=== PATIENT | male | born 1955 | race Caucasian/White ===

== ENCOUNTER 2023-08-09 15:00 | Inpatient (IN) | payer OTHER, SELFPAY ==
[2023-08-09] VITALS (19 sets, daily range): BP systolic 95–164; BP diastolic 56–91; BMI 31.2
--- NOTE | 2023-08-09 10:56 | ED.GENMED ---
History of Present Illness
General
Chief Complaint: Chest Pain
Source: patient
Exam Limitations: none
Time Seen by Provider: 08/09/23 10:47
Nursing documentation reviewed up to this point in time: agreed with
Travel History
Have you had any contact with someone who has COVID-19?: No
Do you have any symptoms of coronavirus? Fever > 100 degrees, chills, cough, shortness of breath, sore throat, loss of taste or smell, muscle aches, or headache?: No
History of Present Illness
History of Present Illness:
67-year-old male with a past medical history of atrial fibrillation, CVA, hyperlipidemia, hypertension who presents to the emergency department with his for evaluation of chest pain. Patient reports acute onset left-sided chest pressure that
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 He says that symptoms have been constant since then. He says some associated clamminess and dizziness.
He says he feels mildly short of breath. He says he has had significant belching associated with it. He denies any abdominal pain. He said he did feel some transient nausea but no vomiting and nausea has resolved by the time of my assessment. He
says he was in his normal state of health prior to onset of symptoms. He says he has never had similar symptoms in the past and has never had exertional symptoms. He does see a schedule clerk (Dr. Lockwood) for atrial fibrillation and takes Eliquis
but denies any other known cardiac history.
Past History
Past History
ED Past Medical History: Other (? TIA)
ED Past Surgical History: Orthopedic
Social History
Tobacco: Non-smoker
Alcohol: None
Drug: None
Personal:
Living: with family
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
Review of Systems
Review of Systems
All Other Systems: ROS reviewed and negative except as documented in HPI and ROS
Constitutional: Denies fever or chills
Respiratory: Reports trouble breathing; Denies cough
Cardiac: Reports chest pain and diaphoresis; Denies palpitations
ABD/GI: Reports nausea; Denies abdominal pain, vomiting or diarrhea
: Denies flank pain
Musculoskeletal: Denies neck pain or back pain
Neurological: Reports dizzy; Denies headache, weakness or numbness
Phy Exam
Physical Exam
Physical Exam:
General: Awake, alert, oriented x3; laying in bed appears clammy and somewhat uncomfortable
Head: Normocephalic, atraumatic
Eyes: Conjunctiva normal, sclera anicteric
Throat: Airway intact, handling secretions
Neck: Trachea midline, supple without meningismus
Lungs: Clear to auscultation bilaterally, no wheezing, rales, rhonchi
Heart: Regular rate and rhythm, no murmurs, gallops, or rubs
Abd: Soft, non distended, minimal epigastric tenderness
Neuro: Cranial nerves grossly intact, speech fluid
Skin: no rash
Extremities: No edema in extremities, equal pulses in all extremities
Scores
Heart Failure Risk
Heart Failure Risk Score: Not Applicable
Heart Score for Chest Pain Patients
STEMI patient?: No
History: Moderately Suspicious
ECG: Normal
Age: >/= 65 years
Risk Factors: >/= 3 Risk Factors or History of CAD
Troponin: </= Normal Limit
Heart Score for Chest Pain Patients: 5
Heart Score Risk: 20.3% MACE over next 6 weeks
Withdrawal Assessment of Alcohol
Withdrawal Assessment Completed?: Not applicable
Course
Orders/Labs/Results
Orders:
Orders
08/09/23
Electrocardiogram (*1) Stat
Comment: DONE EMR
08/09/23 10:31
Electrocardiogram (*1) Urgent
Reason for Study: Chest Pain
EKG- Treatment ONCE
08/09/23 10:51
Nitroglycerin Sublingual [Nitrostat (Sublingual)] 0.4 mg .ROUTE .STK-MED ONE
08/09/23 10:52
Aspirin Chewable [Low Strength Aspirin] 324 mg .ROUTE .STK-MED ONE
08/09/23 10:53
Complete Blood Count/With Diff Urgent
Comprehensive Metabolic Panel Urgent
Lipase Urgent
PT/INR [Prothrombin Time] Urgent
PTT Urgent
Comment: COMBINE
Troponin I Urgent
08/09/23 10:54
CR Chest - 2 Views Urgent
Reason For Exam: cp
08/09/23 11:33
CT Chest Angio W/wo Iv Contras Urgent
Comment:
Reason For Exam: acute onset severe chest pain
Pharmacy Request to Place See Dose Instructions PO NOW STA
Discontinue all Active Warfarin orders?: Yes
08/09/23 11:[address] Non Medication Order As Directed
Physician Order: PTT 6 hours after initial start of Heparin infusion
08/09/23 11:37
Nitroglycerin 100 mg/250 ml [Nitroglycerin Premix] 100 mg in 250 ml IV NOW
Currently infusing. Continue current dose and titrate:: Yes
Titrate to keep:: Chest Pain Free
Titrate by mcg/min:: 5 mcg/min, may increase by 10 mcg/min if dose > 20 mcg/min
Frequency of titrations (minutes):: every 3-5 minutes
Maximum dose in mcg/min:: 200
Begin to taper infusion when:: Remained at goal for 2hrs
Taper by mcg/min:: 5 mcg/min
Frequency of taper (minutes) if patient maintains goal:: 30
Taper to off?: Yes
If infusion off & no longer maintaining goal:: Contact Provider
Pulse Ox/cont/shift [RESP] Stat
Quantity: 1
08/09/23 11:38
CARDIOLOGY CONSULT Urgent
Consulting Provider: Jacqui Briscoe
Was physician already notified: Yes
Cardiac Monitoring- Treatment ONCE
08/09/23 11:45
Heparin 44670 Units/250 ml 25,000 units in 250 ml IV PER PROTOCOL
Weight to be used for heparin protocol in kilograms (kg):: 98.7
Protocol:: Cardiac Tx/Acute Coronary
PTT Goal Range to be used:: PTT 73 to 111 seconds
Order type:: Initial
INITIAL Infusion Dose (UNITS/KG/hr) & then follow protocol:: 12 units/kg/hr
Infusion Dose in UNITS/hr & then follow protocol (UNITS/hr):: 1,000
INFUSION RATE in mL/hr & then follow protocol (mL/hr):: 10
PTT less than or equal to 64 seconds:: Increase rate by 200 units/hr (+ 2 mL/hr)
PTT 64.1 to 72.9 seconds:: Increase rate by 100 units/hr (+ 1 mL/hr)
PTT 73 to 111 seconds:: Target Range. No change in rate.
PTT 111.1 to 130.9 seconds:: Decrease rate by 100 units/hr (- 1 mL/hr)
PTT 131 to 199.9 seconds:: HOLD for 1 hr. Then decrease rate by 200 units/hr (- 2 mL/hr)
PTT greater than or equal to 200 seconds:: HOLD for 2 hrs & Notify Provider. Then decrease by 200 units/hr (-
2 mL/hr)
Lab follow-up:: Each change, PTT q6h until 2 consecutive are therapeutic. Then PTT
daily.
08/09/23 12:[address] See Dose Instructions IV DIRECTED
08/09/23 12:02
Add On- LAB Urgent
Tests Added?: PTT to coag
08/09/23 12:50
Echo 2D MMode Color/Doppler Routine
Reason for Study: Chest pain
08/09/23 14:00
Troponin I Urgent
Abnormal Lab Results
08/09/23
10:53
RBC 4.11 L 10^6/uL
(4.70-6.10)
MCV 96.6 H fL
(80.0-94.0)
MCH 34.5 H pg
(27.0-31.0)
MPV 10.9 H fL
(7.4-10.4)
Absolute Lymphs (auto) 0.8 L 10^3/uL
(1.2-3.4)
Neutrophils % 81.7 H %
(42.2-75.2)
Lymphocytes % 10.5 L %
(20.5-51.1)
APTT 36.8 H Sec
(23.4-35.0)
Glucose 138 H mg/dl
(70-99)
Calcium 10.4 H mg/dl
(8.4-10.2)
08/09/23 10:53
08/09/23 10:53
Vital Signs
Initial and Last Documented VS:
Initial Vital Signs
Pulse Resp BP Pulse Ox
66 16 164/91 98
08/09/23 10:36 08/09/23 10:36 08/09/23 10:36 08/09/23 10:36
Last Documented Vital Signs
Temp Pulse Resp BP Pulse Ox
36.7 C 66 24 134/83 98
08/09/23 11:03 08/09/23 11:03 08/09/23 11:03 08/09/23 11:03 08/09/23 11:03
MDM/Problems Addressed
Differential Diagnosis Includes:
Acute RI/ACS, gastritis/esophageal spasm, cholecystitis, acute aortic dissection somewhat less likely, pulmonary embolism a consideration
MDM/Problems Addressed:
67-year-old male with history as above presents for evaluation of acute onset chest pressure associate with shortness of breath, clamminess, dizziness and belching. Hypertensive but otherwise normal vitals. Physical exam as above. EKG shows sinus
rhythm no STEMI. Plan to place an IV check labs including CBC CMP, lipase, troponins. Check stat portable chest x-ray. Will treat with nitroglycerin and aspirin. Will monitor very closely, low threshold for CT chest given acuity of onset and
patient appearance. Reassess after the above.
Labs reviewed: CBC unremarkable, CMP no clinically significant abnormalities. Troponin negative x 1. Lipase normal. Chest x-ray shows no acute disease on my review. Will perform serial EKG. Will send for a CTA to rule out aortic dissection or
PE. I am concerned that this is anginal chest pain. After dose of nitroglycerin x 3 patient did have improvement in his chest pain�he says intensity went from 9/10 down to a 6/10 but it is starting to return. Will provide nitroglycerin infusion
and titrate to chest pain-free. I have placed a call to cardiology to evaluate the patient--discussed case, recommended starting on heparin without bolus given that he is on Eliquis, agreed with nitroglycerin infusion and aspirin and they will
evaluate at bedside.
CTA chest negative for dissection or PE. Cardiology at bedside assessing patient, awaiting recommendations�anticipate admission.
Cardiology evaluated patient, recommended holding on heparin unless repeat troponin rising. Not clearly cardiac chest pain from their perspective, treated with Toradol for possible muscular component. They will perform echocardiogram at bedside.
They recommended admission to hospital service they will consult and we will continue to trend troponins. Case discussed with hospitalist for admission.
Chronic conditions affecting care:
Hypertension, hyperlipidemia, obesity
Chronic conditions affecting care: HTN
Acute Exacerbation and/or Progression of Chronic Illness:
Acutely hypertensive
*Radiology
Radiology exam reviewed: preliminary read by ED provider and radiology read reviewed
*Pulse Oximetry
Patient hypoxic: no
*EKG
Interpreted by ED Provider?: Yes
Heart Rate: 60
Rate: normal
Rhythm: sinus
[place]: normal axis
Interval: normal interval
QRS Pattern: normal QRS
Ischemia: no ischemia
*Critical Care Note
Total Time (30-74mins, 75-104mins- exclusive of procedures): Not Applicable
Data Reviewed
Review of Other/Old Records Reveals: Labs and Records
Source: patient, records and spouse
Patient Management
Discussion with other providers: Hospitalist (Discussed with hospitalist) and Montessori Teacher (Discussed with cardiology)
Escalation/DeEscalation of care consider admission/obs:
Admission indicated
ED Attending Note
-
Portions of this chart may have been created with voice recognition software.� Occasional wrong word or��sound alike� substitutions may have occurred due to the inherent limitations of voice recognition software.
Discharge Plan
Departure
Patient Disposition: Admit
Date of Disposition: 08/09/23
Time of Disposition: 12:57
Admit to doctor: Kal
Presentation/result/management discussed w/ accepting MD/DO: Hospitalist
Discharge Problem:
Chest pain
Prescriptions:
No Action
Eliquis 5 mg Tablet
5 mg PO BID
multivitamin [One A Day] Tablet
1 tab PO DAILY
calcium carbonate-vitamin D3 [Calcium + D] 600 mg-5 mcg (200 unit) Tablet
1 tab PO DAILY
Acetaminophen PM 25-500 mg Tablet
1 tab PO HS PRN (Reason: sleep )
melatonin 10 mg Tablet
10 mg PO HS
atorvastatin 40 MG tablet
40 mg PO QPM
Referrals:
Chet Frost MD [Family Provider] -
Interventions
Interventions:
*Risk Screen - Suicide Last Done: 08/09/23 10:57
*General Assessment Last Done: 08/09/23 10:57
*Neglect/Abuse Screening Last Done: 08/09/23 10:57
*ED COVID-19 Vaccine History Last Done: 08/09/23 10:36
ED- Cardiac Assessment Last Done: 08/09/23 10:55
Discharge Date and Time
Print Language: SOUTH SUDANESE
[2023-08-09 11:06] LABS: % Basophils 0.1 % (0-2); % Eosinophils 0.1 % (0-6); % Immature Granulocytes 0.4 % (0-0.5); % Lymphocytes 10.5 % (20.5-51.1); % Monocytes 7.2 % (1.7-9.3); % Neutrophils 81.7 % (42.2-75.2); Absolute Lymphocytes 0.8 10^3/uL (1.2-3.4); Absolute Monocytes 0.6 10^3/uL (0.1-0.6); Absolute Neutrophils 6.4 10^3/uL (1.4-6.5); Hematocrit 39.7 % (39.0-52.0); Hemoglobin 14.2 g/dL (13.0-18.0); Mean Corp Hgb Conc. 35.8 g/dL (33.0-37.0); Mean Corpuscular Hgb 34.5 pg (27.0-31.0); Mean Corpuscular Volume 96.6 fL (80.0-94.0); Mean Platelet Volume 10.9 fL (7.4-10.4); Nucleated Red Blood Cells % 0 % (-); Platelet Count 186 10^3/uL (130-400); Red Blood Cell Count 4.11 10^6/uL (4.70-6.10); Red Cell Dist. Width 11.9 % (11.5-14.5); White Blood Cell Count 7.8 10^3/uL (4.8-10.8)
[2023-08-09 11:15] LABS: ALT (SGPT) 28 U/L (0-50); AST (SGOT) 32 U/L (17-59); Alkaline Phosphatase 84 U/L (38-126); Blood Urea Nitrogen 14 mg/dl (9-20); Calcium 10.4 mg/dl (8.4-10.2); Carbon Dioxide 29 mmol/L (22-30); Chloride 100 mmol/L (98-107); Estimated Creatinine Clearance 108 ml/min; Glucose 138 mg/dl (70-99); Lipase 61 U/L (23-300); Potassium 4.1 mmol/L (3.5-5.1); Sodium 138 mmol/L (135-145); Total Bilirubin 0.6 mg/dl (0.2-1.3); Total Protein 7.3 g/dl (6.3-8.2); eGFR > 60.00
[2023-08-09 11:20] LABS: INR 1.07; PT 13.7 Sec (11.4-14.6)
[2023-08-09 11:29] LABS: Troponin I 0.016 ng/ml
--- NOTE | 2023-08-09 12:02 | CON.CAR ---
Addendum entered and electronically signed by Mely Cole PA-C 08/09/23 15:16:
Second troponin returned elevated at 0.399.
Heparin drip initiated.
Nitro drip restarted.
Continue to trend Troponin
PRN morphine ordered for pain
Plan for cardiac catheterization today versus tomorrow pending ability to control symptoms.
Addendum entered and electronically signed by Jacqui Briscoe MD 08/09/23 13:18:
I saw and examined the patient.
The Health Insurance Assessor's note was reviewed and I agree with the note.
Comment: Examined patient's and discussed with patient and his at bedside. Patient laying in the bed with his eyes closed in severe pain by report somewhat helped but 'possibly not helped 'by nitroglycerin.
Pain occurred after lifting a box of shingles, 10 minutes later and he localizes pinpoint left sternal border and it helps by pulling the skin up. He however at times is writhing in pain and said everything hurts all over including his abdomen. CT
scan of the chest was negative for PE and dissection. 2 EKGs thus far are without acute abnormalities. First troponin is negative at 0.016. Second troponin pending.
He has history of atrial fibrillation and is on Eliquis.
Patient is a difficult historian at this point in time and is unclear if this pain is cardiac, abdominal or musculoskeletal. He definitely will need observation and follow-up on troponins.
-1 dose of Toradol given
-Continue IV nitroglycerin but may discontinue if second troponin is negative
-Aspirin given
-Trend troponins
-Check echocardiogram
-Prior cath in 2019 without obstructive coronary disease noted.
Further cardiac recommendations pending testing.
Original Note:
Consultation
Consultation Request
Date/Time Consultation Requested:
Date/Time Consultation Performed: 08/09/2023
Requesting Provider: Dr. Rios
Performing Provider: Dr. Jacqui Briscoe
Reason for Consultation: Chest pain
Medical History
-
History of Present Illness:
HPI: Lloyd is a 67 year old male with PMH of paroxysmal atrial fibrillation, HLD, polymyalgia rheumatica, TIA, and CVA. He presented to [facility] for evaluation of acute onset chest pain. He woke up this morning in his normal state of health and started
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 He had chest pain with associated dizziness and diaphoresis. He
also noted increased belching which lasted for approximately an hour. He came to ER for evaluation and given severe pain, cardiology consulted urgently. EKG without acute ischemic abnormality noted x 2. Initial troponin 0.016. He had CT of chest
which was negative for PE and negative for aortic dissection. He notes some improvement in pain when grabbing/pinching chest over the area of discomfort. He also notes some abdominal pain that is diffuse. He was given 324mg of aspirin and started on
nitro drip. Nitro helped initially with some improvement in his pain, however has again worsened despite being on nitro drip.
PMH:
Paroxysmal atrial fibrillation
Chronic Eliquis anticoagulation
HLD
Polymyalgia rheumatica
h/o TIA 2010
h/o CVA 07/2021
Past Medical History
Past Medical History: Other (In HPI)
Past Surgical History: Other (spinal fusion, hernia, rotator cuff repair)
Social History
Tobacco: Non-Smoker
Alcohol: Occasional
Drug: None
Personal:
Living: With Family
Employment: Employed
Family History
Family History: CAD
Allergies / Home Medications
Allergy/AdvReac Type Severity Reaction Status Date / Time
No Known Allergies Allergy Verified 08/09/23 10:38
�Medication �Instructions �Recorded �Confirmed �Type
apixaban 5 mg tablet (Eliquis) 5 mg PO BID atrial fibrillation 12/04/21 08/09/23 History
multivitamin 1 tab PO DAILY Supplement 12/04/21 08/09/23 History
atorvastatin 40 mg tablet 40 mg PO QPM High Cholesterol 08/09/23 08/09/23 History
calcium carbonate 600 mg-vitamin 1 tab PO DAILY Supplement 08/09/23 08/09/23 History
D3 5 mcg (200 unit) tablet
diphenhydramine 25 1 tab PO HS PRN sleep 08/09/23 08/09/23 History
mg-acetaminophen 500 mg tablet
(Acetaminophen PM)
melatonin 10 mg tablet 10 mg PO HS sleep 08/09/23 08/09/23 History
Review of Systems
-
History Source: Patient
All other systems: Negative unless noted
Physical Exam
Vital Signs
Temp Pulse Resp BP Pulse Ox
98.0 F 66 24 134/83 98
08/09/23 11:03 08/09/23 11:03 08/09/23 11:03 08/09/23 11:03 08/09/23 11:03
Lab Results
08/09/23 10:53
08/09/23 10:53
Troponin I 0.016 ng/ml 08/09/23 10:53
Physical Exam
General: Well Developed, Well Nourished and Pain
HEENT: Normocephalic, Anicteric and Moist Mucous Membranes
Respiratory: Clear
Cardiac: Regular Rhythm
GI: Soft and Tender
Musculoskeletal: No Clubbing, No Cyanosis and No Edema
Skin: Warm and Dry
Neuro: AO x 3 and Nonfocal/Grossly Intact
Impression / Plan
-
PCP: Dr. Frost
Tube And Rod Straightener: Dr. Lockwood, last seen 08/2021
Impression:
Presented with chest pain
Abdominal pain
Elevated BP
Paroxysmal atrial fibrillation
Chronic Eliquis anticoagulation
HLD
Polymyalgia rheumatica
h/o TIA 2010
h/o CVA 07/2021
C 09/14/2018: Nonobstructive coronary disease. Preserved LV systolic function.
Echo 07/30/2023: EF 55-60%, trace MR, trace TR, estimated PAP 30 mmHg
Plan:
-Presented with sudden onset chest pain. EKG SR without acute ischemic changes x 2.
-CTA negative for PE or dissection
-Initial troponin 0.016. Continue to trend to peak.
-Echo pending.
-Continue nitroglycerin drip for now. Toradol also ordered for possible muscular pain.
-Hold off on IV heparin unless troponin rising on repeat or if WMA noted on echo.
-Aspirin 324 mg given in ER.
-Prior cath 08/2018 with nonobstructive coronary disease.
-No atrial fibrillation noted on telemetry. Continue Eliquis 5mg BID for anticoagulation.
-Defer workup of abdominal pain to hospitalist service. Lipase 61.
-BP elevated on arrival. Improving w/ IV nitro. Continue to follow. Not on antihypertensives as OP.
-Check CVE, A1c in AM.
-Continue lipitor 40mg daily.
HPI: Lloyd is a 67 year old male with PMH of paroxysmal atrial fibrillation, HLD, polymyalgia rheumatica, TIA, and CVA. He presented to [facility] for evaluation of acute onset chest pain. He woke up this morning in his normal state of health and started
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 He had chest pain with associated dizziness and diaphoresis. He
also noted increased belching which lasted for approximately an hour. He came to ER for evaluation and given severe pain, cardiology consulted urgently. EKG without acute ischemic abnormality noted x 2. Initial troponin 0.016. He had CT of chest
which was negative for PE and negative for aortic dissection. He notes some improvement in pain when grabbing/pinching chest over the area of discomfort. He also notes some abdominal pain that is diffuse. He was given 324mg of aspirin and started on
nitro drip. Nitro helped initially with some improvement in his pain, however has again worsened despite being on nitro drip.
Data Reviewed
-
EKG: Tracing Personally Visualized and interpreted
Radiology: Report Reviewed by me
CT Scan: Report Reviewed by me
Labs: Labs Reviewed by me
Old Records: Reviewed
[2023-08-09] MEDS: NITROGLYCERIN PREMIX 250 IV (12:04)
[2023-08-09 12:30] LABS: APTT 36.8 Sec (23.4-35.0)
--- NOTE | 2023-08-09 13:03 | HPS.HSE ---
Addendum entered and electronically signed by Dinesh Burnett MD 08/09/23 14:01:
I spent a total of 76 minutes with the patient or on the floor. More than 50% of this time involved counseling and coordination of care.
Addendum entered and electronically signed by Dinesh Burnett MD 08/09/23 13:59:
I saw and examined the patient.
The LABORATORY CHEMICAL ASSISTANT or PA's note was reviewed and I agree with the note.
Comment: 67 male with past medical history of CVA, atrial fibrillation, anemia, hypertension came to the hospital with substernal chest pain. Per patient his symptoms started this morning when he was loading heavy stuff from his truck. Reports
pain is sharp and is nonradiating. Denies any fever/chills. Denies any nausea, vomiting, diarrhea, constipation. In the ER patient was started on heparin and nitro drip. Denies any previous history of similar pain. EKG x 2 does not appear
ischemic. Trend troponin. Per cardiology if second troponin is not significant then wean nitro drip. Pain control. Echocardiogram. Trial of IV PPI and Maalox. Upon labs has hypercalcemia. Gentle hydration
General: Well Developed, Well Nourished and No Apparent Distress
HEENT: NormoCephalic, Moist mucous membranes and Atraumatic
Respiratory: Clear
Cardiac: S1/S2 and Regular Rhythm; No Murmur or Rub
GI: Soft, Non Tender, Non Distended and Normal Bowel Sounds; No Organomegaly
Rectal: Deferred by Provider
Musculoskeletal: No Clubbing, No Cyanosis and No Edema
Skin: No Rash
Neuro: AO x 3 and Nonfocal/grossly intact
Psych: Calm
Original Note:
Family Physician
-
Family Physician: Chet Frost
Chief Complaint
-
Left-sided chest pain
History of Present Illness
67-year-old male with a past medical history of atrial fibrillation, CVA, hyperlipidemia, hypertension who presents to the emergency department with his for evaluation of chest pain. Patient reports acute onset left-sided chest pressure .
stated non radiated pain. patient was loading heavy stuff to his truck as well as walked from his neighbor house to his house. 20 minutes after loading, he started having mid sternum to left sided chest pain. denied any trauma. patient denied sob.
stated dizzy. denied BECKMAN.denied fever, chills. denied abdominal pain but stated he had pain with pushing. denied diarrhea, n/v/. denied dysuria or hematuria.
trop negative. EKG with NSR. initiated on nitro and heparin drip. admitting for further management.
Medical History
Past Medical History
Past Medical History: Reports Other
Additional Past Medical History:
Hyperlipidemia
Paroxysmal A-fib
CVA
Polymyalgia rheumatica
Past Surgical History: Reports Other
Additional Past Surgical History:
Back surgery
Rotator cuff repair
Social History
Tobacco: Non-smoker
Alcohol: None
Drug: None
Personal:
Living: With Family
Family History
Family History: Not pertinent
Allergies / Home Medications
Allergies reflects when Allergies were last updated in [employer].
Home Medications with original date entered in [employer]
Allergy/Medication List:
Allergies
Allergy/AdvReac Type Severity Reaction Status Date / Time
No Known Allergies Allergy Verified 08/09/23 10:38
Home Medications
apixaban 5 mg tablet (Eliquis) 5 mg PO BID atrial fibrillation 12/04/21
multivitamin 1 tab PO DAILY Supplement 12/04/21
atorvastatin 40 mg tablet 40 mg PO QPM High Cholesterol 08/09/23
calcium carbonate 600 mg-vitamin D3 5 mcg (200 unit) tablet 1 tab PO DAILY Supplement 08/09/23
diphenhydramine 25 mg-acetaminophen 500 mg tablet (Acetaminophen PM) 1 tab PO HS PRN sleep 08/09/23
melatonin 10 mg tablet 10 mg PO HS sleep 08/09/23
Review of Systems
-
Constitutional: Reports No Symptoms
EENT: Reports No Symptoms
Respiratory: Reports No Symptoms
Cardiac: Reports Chest Pain
Abdomen/GI: Reports No Symptoms
: Reports No Symptoms
Musculoskeletal: Reports No Symptoms
Skin: Reports No Symptoms
Neurological: Reports Dizzy
Endocrine: Reports No Symptoms
Hematologic/Lymphatic: Reports No Symptoms
Psych: Reports No Symptoms
Physical Exam
Vital Signs
Vital Signs
Temp Pulse Resp BP Pulse Ox
98.0 F 66 24 134/83 98
08/09/23 11:03 08/09/23 11:03 08/09/23 11:03 08/09/23 11:03 08/09/23 11:03
Physical Exam
General: Well Developed, Well Nourished and No Apparent Distress
HEENT: NormoCephalic, Moist mucous membranes and Atraumatic
Respiratory: Clear
Cardiac: S1/S2 and Regular Rhythm; No Murmur or Rub
GI: Soft, Non Tender, Non Distended and Normal Bowel Sounds; No Organomegaly
Rectal: Deferred by Provider
Musculoskeletal: No Clubbing, No Cyanosis and No Edema
Skin: No Rash
Neuro: AO x 3 and Nonfocal/grossly intact
Psych: Calm
Laboratory Results
-
08/09/23 10:53
08/09/23 10:53
Laboratory Results
PT 13.7 Sec (11.4-14.6) 08/09/23 10:53
INR 1.07 08/09/23 10:53
APTT Cancelled 08/09/23 11:36
Total Bilirubin 0.6 mg/dl (0.2-1.3) 08/09/23 10:53
AST 32 U/L (17-59) 08/09/23 10:53
ALT 28 U/L (0-50) 08/09/23 10:53
Alkaline Phosphatase 84 U/L (38-126) 08/09/23 10:53
Troponin I 0.016 ng/ml 08/09/23 10:53
Lipase 61 U/L (23-300) 08/09/23 10:53
Data Reviewed
-
Diagnostic Radiology: Report Reviewed by me
CT Scan: Report Reviewed by me
Lab Data: Labs Reviewed by me
Impression/Plan
-
# Chest pain likely musculoskeletal rule out NSTEMI
-chest pain not improving with nitro, hold nitro
-received a dose of aspirin in ER
-Aspirin continued
-Trend troponin
-EKG with impression of normal sinus rhythm
-Cardiology following
-Echo ordered
-CT angiography with no evidence of pulmonary embolism or thoracic aortic dissection, clear lungs
-Chest x-ray with impression of clear lungs
-morphine prn for pain
-heparin drip continued
-IV PPI
-Maalox in ER
# History of paroxysmal A-fib
-Hold Eliquis
-Initiated on heparin dri
#hxt of CVA
# Hyperlipidemia
-Statin continued
# History of polymyalgia rheumatica
#Full code
#VT prophylaxis-SCDs
[2023-08-09] MEDS: TORADOL 15 MG IV (13:15)
--- NOTE | 2023-08-09 14:00 | W.PN.UPDATE ---
Update Note
Progress Note Update
For billing purpose only
[2023-08-09] MEDS: MAALOX 30 ML PO (14:27)
[2023-08-09 14:49] LABS: Troponin I 0.399 ng/ml
--- NOTE | 2023-08-09 15:54 | CM ---
Reviewed chart. Met with and Mrs. Don to review discharge plans. He states prior to admission he resides with his spouse in a one story home with one step to enter. He states prior to admission he was independent with ambulation and adls.
He states he tapia snot have any DME in the home. He states he has a prescription plan and uses [facility]. Medical work-up in progress. The discharge plan is to return home with spouse when medically stable.
[2023-08-09 16:31] LABS: ACT-LR - POC 226 Seconds (116-155)
--- NOTE | 2023-08-09 16:37 | ITS.CL.CATH ---
[employer] - Catheterization
Cardiac Catheterization
Procedure Report:
LEFT HEART CATHETERIZATION
Date of Procedure: August 09, 2023
Referring: Dr. Jacqui Briscoe
PROCEDURES:
1. Left heart catheterization with coronary and single-plane left ventriculography
INDICATION: Chest pain with elevated troponin
ACCESS: Right radial artery, 6 Moroccan sheath
HEMODYNAMICS : (mmHg)
AO (s/d) : 121/61, 80
LV (s/d) : 125/9
LVEDP : 19
CORONARY FINDINGS
DOMINANCE: Right
LEFT MAIN: Normal
LEFT ANTERIOR DESCENDING: The LAD arises normally from the left main and runs in the anterior interventricular groove. The LAD wraps completely around the apex supplying a portion of the inferior wall and is widely patent and free of any
obstructive atherosclerotic disease
CIRCUMFLEX: The circumflex is a medium caliber nondominant vessel giving rise to 2 obtuse marginal branches. The circumflex is widely patent
RIGHT CORONARY ARTERY: The right coronary artery is a dominant vessel that is widely patent.. The PDA is widely patent. The posterolateral branch is small but patent.
VENTRICULOGRAPHY: Left ventriculography was performed in an MORRIS projection. Digital single-plane left ventricular ejection fraction is estimated at 50-55%. Possible focal diaphragmatic inferior hypokinesis.
RADIATION SUMMARY: Fluoro Time (min): 2.6, Dose (mGy): 423, DAP (Gy.cm2) : 39.1
Closure Device: TR band
CONCLUSIONS
1. Normal coronary arteries
2. Preserved LV systolic function
RECOMMENDATIONS
1. Medical therapy for nonobstructive coronary disease
2. Continue to trend serial troponin levels
Copy to: Dr. Estrada Lockwood
[2023-08-09] MEDS: PROTONIX IV 40 MG IV (17:21)
[2023-08-09] MEDS: NSS (PRESERVATIVE FREE) 10 ML IV (17:21)
[2023-08-09] MEDS: LIPITOR 40 MG PO (17:21)
--- NOTE | 2023-08-09 18:10 | PTCARENOTE ---
Pt arrived to IVU post cardiac cath, all coronary arteries are reported neg for needing a stent. Pt is SB as per monitor. Pt states that he still has some sl chest pain '08/05', which has been constant since 0830 this morning. R rad pressure band
on, 3 ml of air removed at 1730. Pt ordered dinner, Dr Jennings in to see pt in room post cath. Reviewed troponins. Pt's also in room. Pt able to walk to Bathroom, voiding without difficulty. R/A sat= 99%
[2023-08-09] MEDS: MELATONIN 10 MG PO (21:55)
[2023-08-09] MEDS: TYLENOL 500 MG PO (21:55)
[2023-08-09] MEDS: BENADRYL 25 MG PO (21:56)
--- NOTE | 2023-08-09 22:40 | PTCARENOTE ---
Pt states CP is about the same rating it 5/10 which he states is an acceptable level for him. Troponin drawn and sent. R radial site c/d/i. Currently in bed; call zaida w/in reach.
[2023-08-10] VITALS (7 sets, daily range): BP systolic 125–151; BP diastolic 72–84; BMI 25.9
[2023-08-10] MEDS: MORPHINE SULFATE 1 MG IV ×2 (02:38→10:28)
--- NOTE | 2023-08-10 02:57 | PTCARENOTE ---
Pt rang call zaida at 0250 reporting CP 11/05. Pt reports being able to get some sleep. Ekg obtained. Troponin drawn and sent. BP 151/83. Pt sating at 96% RA. IV Morphine administered as ordered. See MAY. Pt in bed; call zaida w/in reach.
[2023-08-10 03:14] LABS: Hematocrit 35.4 % (39.0-52.0); Hemoglobin 12.7 g/dL (13.0-18.0); Mean Corp Hgb Conc. 35.9 g/dL (33.0-37.0); Mean Corpuscular Hgb 33.8 pg (27.0-31.0); Mean Corpuscular Volume 94.1 fL (80.0-94.0); Platelet Count 161 10^3/uL (130-400); Red Blood Cell Count 3.76 10^6/uL (4.70-6.10); Red Cell Dist. Width 12.2 % (11.5-14.5)
[2023-08-10 03:41] LABS: Blood Urea Nitrogen 16 mg/dl (9-20); Calcium 9.6 mg/dl (8.4-10.2); Carbon Dioxide 24 mmol/L (22-30); Chloride 107 mmol/L (98-107); Estimated Creatinine Clearance 96 ml/min; Glucose 91 mg/dl (70-99); HDL Cholesterol 55 mg/dl; LDL Cholesterol, Calculated 27 mg/dl; Potassium 3.8 mmol/L (3.5-5.1); Sodium 139 mmol/L (135-145); Total Cholesterol 104 mg/dl (50-199); Triglyceride 111 mg/dl (10-149); Very Low Density Lipoprotein 22 mg/dl (0-30); eGFR > 60.00
[2023-08-10] MEDS: PROTONIX IV 40 MG IV (08:04)
[2023-08-10] MEDS: LOW STRENGTH ASPIRIN 81 MG PO (08:07)
[2023-08-10] MEDS: NSS (PRESERVATIVE FREE) 10 ML IV (08:07)
[2023-08-10] MEDS: ELIQUIS 5 MG PO ×2 (08:08→19:48)
[2023-08-10 09:22] LABS: Glycohemoglobin (HgbA1c) 5.3 % (4.0-5.6)
[2023-08-10] MEDS: LIDOCAINE 4% PATCH 1 PATCH TOPICAL (10:20)
--- NOTE | 2023-08-10 11:25 | W.PN.HOSP.TC ---
Today's Communication/Plan
-
Monitor vital signs
See plan
Still with intermittent chest pain, improved with morphine
Check CK
Cardiology to see today
trop uptrending; monitor
Assessment / Plan
Assessment / Plan
General: Well Developed, Well Nourished and No Apparent Distress
HEENT: NormoCephalic, Moist mucous membranes and Atraumatic
Respiratory: Clear
Cardiac: S1/S2 and Regular Rhythm; No Murmur or Rub
GI: Soft, Non Tender, Non Distended and Normal Bowel Sounds; No Organomegaly
Musculoskeletal: No Clubbing, No Cyanosis and No Edema
Neuro: AO x 3 and Nonfocal/grossly intact
Psych: Calm
Chest pain
Initial troponin was positive however troponin continued to increase.
Cardiology following, status post cath 08/08 with normal coronaries.
Troponin continue to rise with intermittent chest pain. Trend troponin. trop now 4.8. Cardiology following
-chest pain did not improve with nitro. Nitro now dc'ed
-Aspirin continued
-Echo 08/08 with EF 70%.
-CT angiography with no evidence of pulmonary embolism or thoracic aortic dissection, clear lungs
-Chest x-ray with impression of clear lungs
-morphine prn for pain
-IV PPI
check CK
# History of paroxysmal A-fib
eliquis restarted
hep gtt stopped
#hxt of CVA
# Hyperlipidemia
-Statin continued
# History of polymyalgia rheumatica
#Full code
#VT prophylaxis-eliquis
Anticipated Discharge: Within 24 hours
Subjective/Interval History
-
Date of Service: August 10, 2023
Has periods of chest pain
Objective Data
-
Labs:
Laboratory Results
08/10/23
02:44
WBC 6.0
Hgb 12.7 L
Hct 35.4 L
Plt Count 161
Sodium 139
Potassium 3.8
Chloride 107
Carbon Dioxide 24
BUN 16
Creatinine 0.9
Glucose 91
Calcium 9.6
Vital Signs:
Vital Signs
Temp Pulse Resp BP Pulse Ox
98.6 F 61 18 126/84 98
08/10/23 10:40 08/10/23 11:00 08/10/23 10:40 08/10/23 10:39 08/10/23 10:40
I&O
08/09/23 08/10/23 08/11/23
06:59 06:59 06:59
Intake Total 580 / 580
Output Total 600 / 600
Balance -20 / -20
--- NOTE | 2023-08-10 11:37 | W.PN.CARDCBS ---
Addendum entered and electronically signed by Navid Lockwood MD 08/10/23 12:24:
I saw and examined the patient.
The Cloth Seconds Sorter's note was reviewed and I agree with the note.
Comment:
GEN: No distress, awake, Ox3
HEENT: supple, anicteric, mmm
LUNGS: CTA, no wheezes/rales
CV: Reg, S1/S2, / syst LSB, no gallop
ABD: soft, BS+, NT/ND
EXT: No edema
NEURO: Gross non-focal
SKIN: No rash
Plan:
Cardiac cath with nonobstructive CAD. Etiology of abnormal troponin remains unclear. CT scan with no pulmonary embolism or aortic pathology.
He remains in sinus rhythm with no atrial fibrillation on telemetry.
Will try adding amlodipine 2.5 mg daily for possible coronary spasm?
Continue aspirin, Eliquis, and atorvastatin.
Original Note:
Today's Communication / Plan
-
continue work up of ongoing CP
add norvasc 2.5mg daily
continue asa, eliquis, statin
Impression / Plan
-
PCP: Dr. Frost
Bingo Floater: Dr. Lockwood, last seen 08/2021
Impression:
Presented with chest pain
Elevated troponin
Abdominal pain
Elevated BP
Paroxysmal atrial fibrillation
Chronic Eliquis anticoagulation
HLD
Polymyalgia rheumatica
h/o TIA 2010
h/o CVA 07/2021
[facility] 09/14/2018: Nonobstructive coronary disease. Preserved LV systolic function.
Echo 07/29/2021: EF 55-60%, trace MR, trace TR, estimated PAP 30 mmHg
ECHO 08/09/23: EF 70%, no regional wall motion abnormalities noted, trace MR, trace TR, PAP 15 mmHg
LHC 08/09/23:
1. Normal coronary arteries
2. Preserved LV systolic function
Plan:
-Presented with sudden onset chest pain which has been constant since that time. patient reports no improvement in pain with IV nitro gtt, but does have improvement with IV morphine
-trop peaked at 4.8.
-unclear etiology of symptoms
-EKG SR. No atrial fibrillation noted on review of telemetry, remains SR/SB
-CTA negative for PE or dissection
-Echo with preserved EF, as above
-s/p cath 08/08 with normal cors
-continue asa, eliquis
-on IV protonix
-add low dose norvasc 2.5mg daily for possible spasm. SCAD also in differential.
-LDL 27. continue statin
HPI: Lloyd is a 67 year old male with PMH of paroxysmal atrial fibrillation, HLD, polymyalgia rheumatica, TIA, and CVA. He presented to [facility] for evaluation of acute onset chest pain. He woke up this morning in his normal state of health and started
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 He had chest pain with associated dizziness and diaphoresis. He
also noted increased belching which lasted for approximately an hour. He came to ER for evaluation and given severe pain, cardiology consulted urgently. EKG without acute ischemic abnormality noted x 2. Initial troponin 0.016. He had CT of chest
which was negative for PE and negative for aortic dissection. He notes some improvement in pain when grabbing/pinching chest over the area of discomfort. He also notes some abdominal pain that is diffuse. He was given 324mg of aspirin and started on
nitro drip. Nitro helped initially with some improvement in his pain, however has again worsened despite being on nitro drip.
Progress Note - Bingo Floater
Subjective
Date of Service: August 10, 2023
reports he continues with chest discomfort, improved with morphine
Objective
Labs:
08/10/23 02:44
08/10/23 02:44
Labs
Hgb 12.7 g/dL (13.0-18.0) L 08/10/23 02:44
Hct 35.4 % (39.0-52.0) L 08/10/23 02:44
Plt Count 161 10^3/uL (130-400) 08/10/23 02:44
PT 13.7 Sec (11.4-14.6) 08/09/23 10:53
INR 1.07 08/09/23 10:53
APTT Cancelled 08/09/23 11:36
Sodium 139 mmol/L (135-145) 08/10/23 02:44
Potassium 3.8 mmol/L (3.5-5.1) 08/10/23 02:44
BUN 16 mg/dl (9-20) 08/10/23 02:44
Creatinine 0.9 mg/dL (0.7-1.3) 08/10/23 02:44
Glucose 91 mg/dl (70-99) 08/10/23 02:44
Troponins
08/09/23 08/09/23 08/09/23
10:53 14:08 16:30
Troponin I 0.016 0.399 H* D 1.030 H* D
08/09/23 08/10/23
22:06 02:44
Troponin I 3.240 H* D 4.840 H* D
Vital Signs and I&O:
Vital Signs
Temp Pulse Resp BP Pulse Ox
98.6 F 61 18 126/84 98
08/10/23 10:40 08/10/23 11:00 08/10/23 10:40 08/10/23 10:39 08/10/23 10:40
Vital Signs
Temp Pulse Resp BP Pulse Ox
98.6 F 61 18 126/84 98
08/10/23 10:40 08/10/23 11:00 08/10/23 10:40 08/10/23 10:39 08/10/23 10:40
Intake & Output
08/08/23 08/09/23 08/10/23 08/11/23
07:59 07:59 07:59 07:59
Intake Total 580 / 580
Output Total 600 / 600
Balance -20 / -20
Physical Exam
Physical Exam
GEN: No distress, awake, alert, oriented x3
HEENT: supple, anicteric, mmm, eomi
LUNGS: CTA B/L, no wheezes/rales
CV: Reg, S1/S2, no murmur
ABD: soft, BS+, NT/ND
EXT: No cyanosis, clubbing, edema
NEURO: Gross non-focal
SKIN: Warm, pink, dry. No rash. R wrist site c/d/i
[2023-08-10] MEDS: NORVASC 2.5 MG PO (11:57)
[2023-08-10 12:25] LABS: Creatine Phosphokinase 275 U/L (55-170)
[2023-08-10] MEDS: TYLENOL 650 MG PO (15:48)
[2023-08-10] MEDS: LIPITOR 40 MG PO (17:10)
--- NOTE | 2023-08-10 18:00 | PTCARENOTE ---
Pt c/o of left sided chest pain requiring Morphine. Lidocaine patch placed to left chest as ordered. Medicated later with Norvasc 2.5mg po and stated he felt much better the rest of the day.
[2023-08-10] MEDS: MELATONIN 10 MG PO (21:16)
[2023-08-10] MEDS: TYLENOL 500 MG PO (21:16)
[2023-08-10] MEDS: BENADRYL 25 MG PO (21:17)
--- NOTE | 2023-08-10 21:45 | PTCARENOTE ---
Pt received at start of shift, HR SB/SR. R radial cath site dressing CDI, surrounding area soft - no hematoma. Pt requested L AC INT pulled. INT pulled. Pt states they have not had any CP since episode in the AM. Pt denies any CP, SOB, or
lightheadedness/dizziness at this time. Informed to notify RN if any changes, call cerda within reach.
--- NOTE | 2023-08-11 03:05 | DOWNTIME ---
There was a [employer] Client Program Assistant Downtime on 08/10/2023 from 0100 to 08/11/2023 at 0300. Downtime documentation of patient's care, including medication administrations, has been reconciled in the electronic record per guidelines. Refer to the
patient's paper chart under the miscellaneous tab to see printed paper medication records and downtime forms.
--- NOTE | 2023-08-11 03:12 | DOWNTIME ---
There was a [employer] Client Button Inspector Downtime on 08/10/2023 from 0100 to 08/11/2023 at 0300. Downtime documentation of patient's care, including medication administrations, has been reconciled in the electronic record per guidelines. Refer to the
patient's paper chart under the miscellaneous tab to see printed paper medication records and downtime forms.
[2023-08-11 04:12] VITALS: BP 120/68
[2023-08-11 04:27] LABS: Hematocrit 35.2 % (39.0-52.0); Hemoglobin 12.5 g/dL (13.0-18.0); Mean Corp Hgb Conc. 35.5 g/dL (33.0-37.0); Mean Corpuscular Hgb 34.2 pg (27.0-31.0); Mean Corpuscular Volume 96.2 fL (80.0-94.0); Mean Platelet Volume 10.7 fL (7.4-10.4); Platelet Count 149 10^3/uL (130-400); Red Blood Cell Count 3.66 10^6/uL (4.70-6.10); White Blood Cell Count 6.6 10^3/uL (4.8-10.8)
[2023-08-11 04:53] LABS: Blood Urea Nitrogen 12 mg/dl (9-20); Calcium 9.2 mg/dl (8.4-10.2); Carbon Dioxide 25 mmol/L (22-30); Chloride 106 mmol/L (98-107); Estimated Creatinine Clearance 109 ml/min; Glucose 96 mg/dl (70-99); Potassium 4.1 mmol/L (3.5-5.1); Sodium 138 mmol/L (135-145); eGFR > 60.00
[2023-08-11 07:44] VITALS: BP 113/71
[2023-08-11] MEDS: LOW STRENGTH ASPIRIN 81 MG PO (08:19)
[2023-08-11] MEDS: ELIQUIS 5 MG PO (08:19)
[2023-08-11] MEDS: NORVASC 2.5 MG PO (08:19)
[2023-08-11] MEDS: NSS (PRESERVATIVE FREE) 10 ML IV (08:21)
[2023-08-11] MEDS: PROTONIX IV 40 MG IV (08:22)
[2023-08-11] MEDS: LIDOCAINE 4% PATCH TOPICAL (08:33)
--- NOTE | 2023-08-11 09:58 | W.PN.HOSP.TC ---
Addendum entered and electronically signed by Rubén Quinn MD 08/11/23 10:06:
Discharge time 31 min
Addendum entered and electronically signed by Rubén Quinn MD 08/11/23 10:05:
Discussed with cardiology okay for discharge
No need for ASA for discharge per cards
Original Note:
Today's Communication/Plan
-
Discharge when ok with cardiology
Assessment / Plan
Assessment / Plan
CVS: S1-S2 normal
Chest: CTA B/L
Abdomen: Soft, NT / Bowel sounds present
Extremities: No edema, normal pulses
SAFETY ANALYST: Non focal exam
#Chest pain -Pain free now
Initial troponin was positive however troponin continued to increase.
Cardiology following, status post cath 08/08 with normal coronaries.
Troponin trended down
-Chest pain did not improve with nitro. Nitro now dc'ed
-Aspirin continued
-Echo 08/08 with EF 70%.
-CT angiography with no evidence of pulmonary embolism or thoracic aortic dissection, clear lungs
-morphine prn for pain
-Amlodipine added
# History of paroxysmal A-fib
Eliquis restarted
#hxt of CVA
# Hyperlipidemia
-Statin continued
# History of polymyalgia rheumatica
#Full code
#VT prophylaxis-Eliquis
D/W RN
Anticipated Discharge: Today
Subjective/Interval History
-
Date of Service: August 11, 2023
Objective Data
-
Labs:
Laboratory Results
08/11/23
04:17
WBC 6.6
Hgb 12.5 L
Hct 35.2 L
Plt Count 149
Sodium 138
Potassium 4.1
Chloride 106
Carbon Dioxide 25
BUN 12
Creatinine 0.7
Glucose 96
Calcium 9.2
Vital Signs:
Vital Signs
Temp Pulse Resp BP Pulse Ox
98.5 F 56 20 113/71 95
08/11/23 07:42 08/11/23 07:45 08/11/23 07:42 08/11/23 07:44 08/11/23 07:42
I&O
08/10/23 08/11/23 08/12/23
06:59 06:59 06:59
Intake Total 580 / 580 480 / 480
Output Total 600 / 600
Balance -20 / -20 480 / 480
--- NOTE | 2023-08-11 10:04 | W.PN.CARDCBS ---
Addendum entered and electronically signed by Navid Lockwood MD 08/11/23 10:38:
I saw and examined the patient.
The Filbert Grower's note was reviewed and I agree with the note.
Comment:
GEN: No distress, awake, Ox3
HEENT: supple, anicteric, mmm
LUNGS: CTA, no wheezes/rales
CV: Reg, S1/S2, no murmur
ABD: soft, BS+, NT/ND
EXT: No edema
NEURO: Gross non-focal
SKIN: No rash
plan:
Chest pains have resolved. Etiology remains unclear. Continue Norvasc 2.5 mg daily.
Continue Eliquis.
He did have a brief episode of SVT on telemetry but is now back in sinus rhythm. Will check outpatient monitor to look for A-fib burden.
With bradycardia he is off all AV randall blockers.
Original Note:
Today's Communication / Plan
-
continue norvasc 2.5mg daily
stop asa. continue eliquis
for OP Bardy monitor
OP cardiac follow up arranged
ok for DC
Impression / Plan
-
PCP: Dr. Frost
Sales And Marketing Professional: Dr. Lockwood, last seen 08/2021
Impression:
Presented with chest pain
Elevated troponin, suspected coronary spasm
Abdominal pain
Elevated BP
Paroxysmal atrial fibrillation/atrial tachycardia
Chronic Eliquis anticoagulation
HLD
Polymyalgia rheumatica
h/o TIA 2010
h/o CVA 07/2021
LHC 09/14/2018: Nonobstructive coronary disease. Preserved LV systolic function.
Echo 07/29/2021: EF 55-60%, trace MR, trace TR, estimated PAP 30 mmHg
ECHO 08/09/23: EF 70%, no regional wall motion abnormalities noted, trace MR, trace TR, PAP 15 mmHg
[facility] 08/09/23:
1. Normal coronary arteries
2. Preserved LV systolic function
Plan:
-Presented with sudden onset chest pain which had been constant. reported improvement but not resolution with IV morphine
-trop peaked at 4.8.
-unclear etiology of symptoms
-CTA negative for PE or dissection
-Echo with preserved EF, as above
-s/p cath 08/08 with normal cors
-low dose norvasc added 08/09 for possible spasm and patient reports pain is gone, no recurrences overnight
-he was noted on review of tele overnight to have brief episode of what appears to be atrial tachycardia. will plan for OP monitor to assess burden. not on BB as HRs in SR in 50-60s.
-continue eliquis. asa stopped as cath with normal cors
-LDL 27. continue statin
-OP cardiac follow up arranged
-d/w nursing, hospitalist
HPI: Lloyd is a 67 year old male with PMH of paroxysmal atrial fibrillation, HLD, polymyalgia rheumatica, TIA, and CVA. He presented to [facility] for evaluation of acute onset chest pain. He woke up this morning in his normal state of health and started
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 He had chest pain with associated dizziness and diaphoresis. He
also noted increased belching which lasted for approximately an hour. He came to ER for evaluation and given severe pain, cardiology consulted urgently. EKG without acute ischemic abnormality noted x 2. Initial troponin 0.016. He had CT of chest
which was negative for PE and negative for aortic dissection. He notes some improvement in pain when grabbing/pinching chest over the area of discomfort. He also notes some abdominal pain that is diffuse. He was given 324mg of aspirin and started on
nitro drip. Nitro helped initially with some improvement in his pain, however has again worsened despite being on nitro drip.
Progress Note - Sales And Marketing Professional
Subjective
Date of Service: August 11, 2023
reports no CP overnight. feeling well
Objective
Labs:
08/11/23 04:17
08/11/23 04:17
Labs
Hgb 12.5 g/dL (13.0-18.0) L 08/11/23 04:17
Hct 35.2 % (39.0-52.0) L 08/11/23 04:17
Plt Count 149 10^3/uL (130-400) 08/11/23 04:17
PT 13.7 Sec (11.4-14.6) 08/09/23 10:53
INR 1.07 08/09/23 10:53
APTT Cancelled 08/09/23 11:36
Sodium 138 mmol/L (135-145) 08/11/23 04:17
Potassium 4.1 mmol/L (3.5-5.1) 08/11/23 04:17
BUN 12 mg/dl (9-20) 08/11/23 04:17
Creatinine 0.7 mg/dL (0.7-1.3) 08/11/23 04:17
Glucose 96 mg/dl (70-99) 08/11/23 04:17
Troponins
08/09/23 08/09/23 08/09/23
10:53 14:08 16:30
Troponin I 0.016 0.399 H* D 1.030 H* D
08/09/23 08/10/23 08/10/23
22:06 02:44 09:04
Troponin I 3.240 H* D 4.840 H* D 4.240 H*
Vital Signs and I&O:
Vital Signs
Temp Pulse Resp BP Pulse Ox
98.5 F 56 20 113/71 95
08/11/23 07:42 08/11/23 07:45 08/11/23 07:42 08/11/23 07:44 08/11/23 07:42
Vital Signs
Temp Pulse Resp BP Pulse Ox
98.5 F 56 20 113/71 95
08/11/23 07:42 08/11/23 07:45 08/11/23 07:42 08/11/23 07:44 08/11/23 07:42
Intake & Output
08/09/23 08/10/23 08/11/23 08/12/23
07:59 07:59 07:59 07:59
Intake Total 580 / 580 480 / 480
Output Total 600 / 600
Balance -20 / -20 480 / 480
Physical Exam
Physical Exam
GEN: No distress, awake, alert, oriented x3
HEENT: supple, anicteric, mmm, eomi
LUNGS: CTA B/L, no wheezes/rales
CV: Reg, S1/S2, no murmur
ABD: soft, BS+, NT/ND
EXT: No cyanosis, clubbing, edema
NEURO: Gross non-focal
SKIN: Warm, pink, dry. No rash.
--- NOTE | 2023-08-11 10:05 | W.DS.TRANS ---
Addendum entered and electronically signed by Rubén Quinn MD 08/11/23 15:02:
Dictation- [id number]
Original Note:
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
-
Discharge Instructions:
Sleep Apnea Risk Low
Discharge Diagnosis/Procedures cardiac catheterization for elevated troponin
and chest pain, Coronary spasm, high cholesterol
, polymyalgia, atrial fibrillation, history of
stroke
Diet 2 Gram Sodium
Activity As tolerated
Driving Restrictions As prior to admission
Instructions:
Stand-Alone Forms: DC Instructions- Cath/EP Lab
Changes to Home Medications: Yes
Discharge Medications:
DC Medications w/original date entered in [facility]
apixaban 5 mg tablet (Eliquis) 5 mg PO BID atrial fibrillation 12/04/21
multivitamin 1 tab PO DAILY Supplement 12/04/21
atorvastatin 40 mg tablet 40 mg PO QPM High Cholesterol 08/09/23
calcium carbonate 600 mg-vitamin D3 5 mcg (200 unit) tablet 1 tab PO DAILY Supplement 08/09/23
diphenhydramine 25 mg-acetaminophen 500 mg tablet (Acetaminophen PM) 1 tab PO HS PRN sleep 08/09/23
melatonin 10 mg tablet 10 mg PO HS sleep 08/09/23
amlodipine 2.5 mg tablet 2.5 mg PO DAILY Heart disease/condition #30 tabs 08/11/23
famotidine 40 mg tablet 40 mg PO DAILY Gastrointestinal issue #30 tabs 08/11/23
Home Medication Changes
new
amlodipine 2.5 mg tablet 2.5 mg PO DAILY Heart disease/condition #30 tabs 08/11/23
famotidine 40 mg tablet 40 mg PO DAILY Gastrointestinal issue #30 tabs 08/11/23
Pending Results: No
[2023-08-11 11:27] VITALS: BP 123/67
--- NOTE | 2023-08-11 12:01 | PTCARENOTE ---
Pt received this am alert and oriented. Denies any chest pain or sob. OOB ad peter in the room. Gait steady. Pt had brief run of atrial tach x 2 this am. See strips on the chart. Colette Ortega PAC notified and DR. Lockwood aware. Pt discharged to home
with his son. Discharge instructions given and reviewed with pt with good understanding.
== END 2023-08-11 12:40 | disposition home or self-care (01) | DRG 287 ==
LOC: IVU 15:00
PROVIDERS: Internal Medicine Interventional Cardiology; Registered Nurse; ADMITTING PHYSICIAN Internal Medicine; ATTENDING PHYSICIAN Hospitalist; CONSULT PHYSICIAN Internal Medicine Cardiovascular Disease; EMERGENCY PHYSICIAN Emergency Medicine; FAMILY PHYSICIAN Family Medicine
PROC: B2151ZZ Fluoroscopy of Left Heart using Low Osmolar Contrast (ICD-10-PCS; 2023-08-09)
PROC: 4A023N7 Measurement of Cardiac Sampling and Pressure, Left Heart, Percutaneous Approach (ICD-10-PCS; 2023-08-09)
PROC: B2111ZZ Fluoroscopy of Multiple Coronary Arteries using Low Osmolar Contrast (ICD-10-PCS; 2023-08-09)
DX: R07.89 Other chest pain (principal); I48.0 Paroxysmal atrial fibrillation; E78.00 Pure hypercholesterolemia, unspecified; M35.3 Polymyalgia rheumatica; E83.52 Hypercalcemia
CPT/HCPCS: 71046; 71275; 80048; 80053; 80061; 82550; 83036; 83690; 84484; 85025; 85027; 85610; 85730; 93005; 93306; 93458; 96374; 96375; 99285; C1894; Q9967